=== PATIENT | female | born 1965 | race Caucasian/White ===

== ENCOUNTER 2017-06-16 13:06 | Day surgery (SDC) | payer OTHER ==
[~2017-06-16] VITALS: Ht 167.6 cm; Wt 90.7 kg
[~2017-06-16 13:06] MED LIST: BUDE2SUS3 IN; GABA-497 PO; IBUP800T24 PO; IODIXANOL 320MG/ML 100ML BTL IV ONE; LIDOCAINE 2%HCL (LOCAL ANESTH.) INJ 20ML MDV ONE; SIMV-8 PO; TRAV0.00 EACHEYE; VENL150C58 PO
[2017-06-16] MEDS ORDERED: MIDAZOLAM HCL 1MG/1ML-2 ML VIAL ONE (13:38)
[2017-06-16] MEDS ORDERED: fentaNYL CITRATE 100 MCG/2 ML VL ONE (13:39)
[2017-06-16] MEDS ORDERED: VERAPAMIL 2.5MG/ML INJ 2ML VIAL IV ONE (13:39)
[2017-06-16] MEDS ORDERED: HEPARIN 1,000 UNITS/ml 1ML VIAL ONE (14:17)
== END 2017-06-16 16:45 | disposition home or self-care (01) ==
LOC: CATH 13:06
PROVIDERS: ATTEND Internal Medicine
DX: R07.9 Chest pain, unspecified (principal); R06.02 Shortness of breath; F32.9 Major depressive disorder, single episode, unspecified; E78.00 Pure hypercholesterolemia, unspecified; Z88.8 Allergy status to other drugs, medicaments and biological substances; Z87.891 Personal history of nicotine dependence; F10.99 Alcohol use, unspecified with unspecified alcohol-induced disorder; I10 Essential (primary) hypertension; E66.9 Obesity, unspecified; Z68.32 Body mass index [BMI] 32.0-32.9, adult
CPT/HCPCS: 93460; C1769; C1894; J1644; J2250; J3010; J7030; Q9967; 99152